=== PATIENT | female | born 1995 | race African-American/Black ===

== ENCOUNTER 2021-06-06 11:49 | Outpatient (CLI) | payer OTHER, SELFPAY ==
[2021-06-06 13:41] LABS: Basophils Percent Auto 0.2 % (0.2-1.2); Eosinophils Absolute Auto 0.1 K/mm3 (0-0.3); Eosinophils Percent Auto 0.6 % (0-4.4); Hematocrit 33.2 % (37.0-47.0); Hemoglobin 10.7 g/dL (12.0-15.0); Immature Granulocyte Absolute 0.06 K/mm3 (0.00-0.031); Immature Granulocyte Percent A 0.5 % (0-0.5); Lymphocytes Absolute Auto 1.51 K/mm3 (0.9-3.2); Mean Corpuscular HGB Conc 32.2 g/dl (32-36); Mean Corpuscular Hemoglobin 25.7 pg (26-34); Mean Corpuscular Volume 79.8 fl (80-100); Mean Platelet Volume 9.1 fl (7.4-10.4); Monocytes Absolute Auto 0.6 K/mm3 (0.1-0.6); Monocytes Percent Auto 5.1 % (2.6-8.5); Neutrophils Absolute Auto 10.2 K/mm3 (1.3-6.7); Neutrophils Percent Auto 81.6 % (45.5-73.1); Platelet Count Result 225 k/mm3 (150-375); Red Blood Count 4.16 M/mm3 (4.2-5.4); Red Cell Distribution Width 14.6 % (11.5-14.5); White Blood Count 12.6 K/mm3 (4.5-10.0)
[2021-06-06 13:54] LABS: Glucose 1 Hour PP 50gm Dose 141 mg/dL
[2021-06-06 14:36] LABS: HIV 1/2 Ab P24 Ag Result Negative (Negative)
[2021-06-09 09:30] LABS: Rapid Plasma Reagin Non-Reactive (NonReactive)
== END 2021-06-06 11:50 | disposition home or self-care (01) ==
PROVIDERS: Visit Provider Obstetrics & Gynecology
DX: Z34.91 Encounter for supervision of normal pregnancy, unspecified, first trimester (principal); Z3A.11 11 weeks gestation of pregnancy
CPT/HCPCS: 36415; 82947; 85025; 86592; 86703; 86850; 86900; 86901; G0432

== ENCOUNTER 2021-06-13 08:32 | Outpatient (CLI) | payer OTHER, SELFPAY ==
[2021-06-13 09:47] LABS: Glucose Fasting Gestational 78 mg/dL (>/=95)
[2021-06-13 11:31] LABS: Glucose 1 Hour Gest 165 mg/dL (>/=180)
[2021-06-13 12:28] LABS: Glucose 2 Hour Gest 157 mg/dL (>/= 155)
[2021-06-13 13:14] LABS: Glucose 3 Hour Gest 114 mg/dL (>/=140)
== END 2021-06-13 08:33 | disposition home or self-care (01) ==
LOC: ANHLAB 08:35
PROVIDERS: Visit Provider Obstetrics & Gynecology
DX: R73.09 Other abnormal glucose (principal)
CPT/HCPCS: 36415; 82951; 82952